=== PATIENT | male | born 1975 | race Hispanic/Latino ===

== ENCOUNTER 2022-10-30 16:48 | Emergency (ER) | payer SELFPAY ==
[~2022-10-30] VITALS: Ht 162.6 cm; Wt 55.0 kg
[2022-10-30 17:51] LABS: BASO% 0.7 % (0-3); EOS% 3.1 % (0-8); HEMATOCRIT 34.9 % (39.0-50.0); HEMOGLOBIN 11.4 g/dl (14.0-18.0); IMMATURE GRANULOCYTES 0.2 % (0.0-5.0); LYMPH% 21.7 % (15-41); MEAN CELL VOLUME 83.7 fL CALC (80.0-100.0); MEAN CORPUSCULAR HGB 27.3 pG CALC (26.0-32.0); MEAN CORPUSCULAR HGB CONC 32.7 g/dL CAL (32.0-36.0); MONO% 15.9 % (2-13); NEUT# 3.15 thou/uL (1.82-7.42); NEUT% 58.4 % (42-76); RED BLOOD COUNT 4.17 mill/uL (4.70-6.10); RED CELL DISTRI WIDTH 15.2 % (11.5-15.5)
[2022-10-30 17:58] LABS: ALBUMIN 4.7 g/dL (3.2-5.0); ALKALINE PHOSPHATASE 158 u/l (38-126); ANION GAP 19 (6-22 (CALC)); BILIRUBIN, TOTAL 0.5 mg/dL (0.2-1.3); BUN 4 mg/dL (9-20); BUN/CREATININE RATIO 6 (12-20 (CALC)); CARBON DIOXIDE 23 mmol/l (22-30); CHLORIDE 101 mmol/l (95-108); CREATININE 0.7 mg/dL (0.7-1.3); GFR FOR AFR.AMER. > 60 ML/MIN (>=60 (CALC)); GFR OTHER RACES > 60 ML/MIN (>=60 (CALC)); POTASSIUM 3.5 mmol/l (3.5-5.1); SGOT/AST 188 u/l (17-59); SODIUM 140 mmol/l (137-146); TOTAL PROTEIN 8.9 g/dL (6.3-8.2)
[2022-10-30 18:08] LABS: ETHYL ALCOHOL 399 mg/dl (0-30)
[2022-10-30 20:44] LABS: URINE BILIRUBIN - DIPSTICK NEGATIVE (NEGATIVE); URINE BLOOD DIPSTICK NEGATIVE (NEGATIVE); URINE COLOR YELLOW; URINE GLUCOSE - DIPSTICK NEGATIVE (NEGATIVE); URINE KETONE NEGATIVE (NEGATIVE); URINE LEUK ESTERASE NEGATIVE (NEGATIVE); URINE PROTEIN - DIPSTICK NEGATIVE (NEG-TRACE); URINE UROBILINOGEN - DIPSTICK 0.2 E.U./dL (0.2)
[2022-10-30 20:45] LABS: URINE NITRITE - DIPSTICK NEGATIVE (Negative)
[2022-10-30 21:21] VITALS: BP 115/81
[2022-10-30 21:30] VITALS: BP 113/79
[2022-10-30 22:00] VITALS: BP 103/63
[2022-10-30 22:30] VITALS: BP 100/59
[2022-10-30 23:00] VITALS: BP 102/59
[2022-10-30 23:30] VITALS: BP 103/60
[2022-10-31] VITALS (12 sets, daily range): BP systolic 95–139; BP diastolic 45–84
[2022-10-31] MEDS ORDERED: KEFLEX500 MG PO (06:36)
== END 2022-10-31 07:54 | disposition home or self-care (01) | DRG 999 ==
LOC: ED 16:48 → EDBD 16:48 → ED 17:17
PROVIDERS: Nurse Practitioner
PROC: 0CQ1XZZ Repair Lower Lip, External Approach (ICD-10-PCS; principal; 2022-10-30)
DX: S01.511A Laceration without foreign body of lip, initial encounter (principal); S02.92XA Unspecified fracture of facial bones, initial encounter for closed fracture; Y09 Assault by unspecified means; F10.129 Alcohol abuse with intoxication, unspecified; Y90.8 Blood alcohol level of 240 mg/100 ml or more

== ENCOUNTER 2022-11-24 20:05 | Emergency (ER) | payer SELFPAY ==
[~2022-11-24] VITALS: Ht 162.6 cm; Wt 65.4 kg
[~2022-11-24 20:05] MED LIST: KEFLEX500 MG PO
[2022-11-24 20:50] VITALS: BP 128/85
[2022-11-24 21:19] LABS: BASO% 1.1 % (0-3); EOS% 2.8 % (0-8); HEMATOCRIT 37.7 % (39.0-50.0); HEMOGLOBIN 12.2 g/dl (14.0-18.0); MEAN CELL VOLUME 86.1 fL CALC (80.0-100.0); MEAN CORPUSCULAR HGB 27.9 pG CALC (26.0-32.0); MEAN CORPUSCULAR HGB CONC 32.4 g/dL CAL (32.0-36.0); MONO% 8.2 % (2-13); NEUT# 4.84 thou/uL (1.82-7.42); NEUT% 53.9 % (42-76); RED BLOOD COUNT 4.38 mill/uL (4.70-6.10)
[2022-11-24 21:34] LABS: ALBUMIN 4.7 g/dL (3.2-5.0); ANION GAP 18 (6-22 (CALC)); BUN 3 mg/dL (9-20); BUN/CREATININE RATIO 5 (12-20 (CALC)); CARBON DIOXIDE 27 mmol/l (22-30); CHLORIDE 100 mmol/l (95-108); CREATININE 0.6 mg/dL (0.7-1.3); GFR FOR AFR.AMER. > 60 ML/MIN (>=60 (CALC)); GFR OTHER RACES > 60 ML/MIN (>=60 (CALC)); SODIUM 142 mmol/l (137-146); TOTAL PROTEIN 9.3 g/dL (6.3-8.2)
[2022-11-24 21:37] LABS: ALKALINE PHOSPHATASE 358 u/l (38-126); BILIRUBIN, TOTAL 1.1 mg/dL (0.2-1.3); SGOT/AST 111 u/l (17-59)
[2022-11-24 22:45] VITALS: BP 126/76
[2022-11-24 23:01] VITALS: BP 107/66
[2022-11-24 23:15] VITALS: BP 102/69
[2022-11-24 23:45] VITALS: BP 111/69
[2022-11-25] VITALS (23 sets, daily range): BP systolic 101–134; BP diastolic 57–86
[2022-11-25] MEDS ORDERED: KEFLEX500 MG PO (07:31)
[2022-11-25] MEDS ORDERED: ULTRAM50 MG PO (07:31)
[2022-11-25] MEDS ORDERED: BACTRIM DS1 TAB PO (07:31)
== END 2022-11-25 06:46 | disposition left against medical advice (07) | DRG 603 ==
LOC: ED 20:05
PROVIDERS: Emergency Medicine
DX: L08.9 Local infection of the skin and subcutaneous tissue, unspecified (principal); Z53.29 Procedure and treatment not carried out because of patient's decision for other reasons
CPT/HCPCS: Q9967

== ENCOUNTER 2024-08-31 18:23 | Emergency (ER) | payer OTHER ==
[~2024-08-31] VITALS: Ht 162.6 cm; Wt 63.5 kg
[~2024-08-31 18:23] MED LIST changes: +BACTRIM DS1 TAB PO; +ULTRAM50 MG PO
[2024-08-31 19:08] LABS: BASO% 0.7 % (0-3); EOS% 5.7 % (0-8); HEMATOCRIT 28.4 % (39.0-50.0); HEMOGLOBIN 9.3 g/dl (14.0-18.0); LYMPH% 37.7 % (15-41); MEAN CELL VOLUME 85.8 fL CALC (80.0-100.0); MEAN CORPUSCULAR HGB 28.1 pG CALC (26.0-32.0); MEAN CORPUSCULAR HGB CONC 32.7 g/dL CAL (32.0-36.0); MONO% 9.9 % (2-13); NEUT# 3.72 thou/uL (1.82-7.42); RED BLOOD COUNT 3.31 mill/uL (4.70-6.10); RED CELL DISTRI WIDTH 16.1 % (11.5-15.5)
[2024-08-31 19:23] LABS: BILIRUBIN, TOTAL 1.2 mg/dL (0.2-1.3); CREATININE 0.7 mg/dL (0.7-1.3); TOTAL PROTEIN 7.7 g/dL (6.3-8.2)
[2024-08-31 19:26] LABS: ALBUMIN 3.2 g/dL (3.2-5.0)
[2024-08-31 20:45] VITALS: BP 113/63
== END 2024-08-31 20:45 | DRG 914 ==
LOC: ED 18:23
PROVIDERS: Family Medicine
DX: S09.90XA Unspecified injury of head, initial encounter (principal); W19.XXXA Unspecified fall, initial encounter; F10.129 Alcohol abuse with intoxication, unspecified